=== PATIENT | male | born 1945 | race Caucasian/White ===

== ENCOUNTER 2016-10-22 12:12 | Emergency (ER) | payer OTHER, MEDICARE ==
[~2016-10-22] VITALS: Ht 182.9 cm; Wt 83.1 kg
[~2016-10-22 12:12] MED LIST: IBUP1TAB6 PO; LEVA750T7 PO; MIRA1TAB3 PO; PERCOCET PO
[2016-10-22 12:51] LABS: EOS # 0.3 K/mm3 (0.0-0.50); EOS % 6.2 % (0.0-3.0); LARGE UNSTAINED CELL # 0.1 K/mm3 (0.0-0.4); LARGE UNSTAINED CELL % 1.5 % (0.0-4.0); LYMPH # 1.1 K/mm3 (1.5-4.5); LYMPH % 24.6 % (24.0-44.0); MEAN CORPUSCULAR HGB CONC 32.1 g/dl (32.0-36.5); MEAN CORPUSCULAR VOLUME 96.6 fl (80.0-96.0); MONO # 0.2 K/mm3 (0.0-0.8); MONO % 4.8 % (0.0-5.0); NEUTROPHILS # 2.7 K/mm3 (1.8-7.7); PLATELET COUNT, AUTOMATED 117 k/mm3 (150-450); RED CELL DISTRIBUTION WIDTH 14.6 % (11.5-14.5); WHITE BLOOD COUNT 4.4 K/mm3 (4.0-10.0)
[2016-10-22 12:58] LABS: INR 0.99
[2016-10-22 13:27] LABS: ANION GAP 3 MEQ/L (8-16); BLOOD UREA NITROGEN 25 MG/DL (7-18); CALCIUM LEVEL 8.7 MG/DL (8.8-10.2); CARBON DIOXIDE LEVEL 30 MEQ/L (21-32); CHLORIDE LEVEL 110 MEQ/L (98-107); GLOMERULAR FILTRATION RATE > 60.0 (>49); GLUCOSE, FASTING 135 MG/DL (80-110); POTASSIUM SERUM 4.5 MEQ/L (3.5-5.1); SODIUM LEVEL 143 MEQ/L (136-145)
--- NOTE | 2016-10-22 13:30 | REP ---
Clinical: Chest . Comparison: Taking 01/12/2016 . Technique: PA and lateral. Findings: The mediastinum and cardiac silhouette are normal. The lung dobbs are clear and without acute consolidation, effusion, or pneumothorax. The skeletal structures are intact and normal. Impression: 1. No acute cardiopulmonary process. Signed by Dinesh Ji MD 10/22/2016 01:22 P
[2016-10-22] MEDS ORDERED: IPRATROPIUM 0.5MG/ALBUTEROL 2.5MG INH SOL UD 3ML (DUONEB)(J7620) NEB ONE ×2 (13:45→15:00)
[2016-10-22] MEDS ORDERED: methylPREDNISolone INJ 125 MG/2 ML VIAL (J2930) IV ONE (13:45)
[2016-10-22] MEDS ORDERED: ALBU17IN2 INH (15:29)
[2016-10-22] MEDS ORDERED: ALBUTEROL 90 MCG/ACT 8GM HFA INHALER INH ONE (15:30)
[2016-10-22 15:40] VITALS: BP 159/70
--- NOTE | 2016-10-23 07:28 | ECGEPIP ---
Stationary ECG Study [facility] - ED Test Date: 2016-10-22 Pat Name: RAMIRO CHAPPELL Department: Room: - Gender: M Stripe Marker: huseyin : 1945 Requested By: SARAHI Martínez Order Number: [id number] Reading MD: Cecile Ruvalcaba Measurements Intervals [place] Rate: 61 P: 54 IA: 161 QRS: 56 QRSD: 89 T: 89 QT: 372 QTc: 377 Interpretive Statements SINUS RHYTHM WITH MARKED SINUS ARRHYTHMIA NONSPECIFIC T-WAVE ABNORMALITY DELAYED R PROGRESSION Electronically Signed On 10-23-2016 7:28:24 EDT by Cecile Ruvalcaba
== END 2016-10-22 15:41 | disposition home or self-care (01) ==
LOC: M ED 12:12
DX: J44.9 Chronic obstructive pulmonary disease, unspecified (principal); R07.9 Chest pain, unspecified; R05 Cough; G25.81 Restless legs syndrome; F17.200 Nicotine dependence, unspecified, uncomplicated; R06.02 Shortness of breath; Z79.899 Other long term (current) drug therapy
CPT/HCPCS: 71020; 80048; 82550; 82553; 83880; 84484; 85025; 85610; 85730; 93005; 93041; 94640; 94760; 96374; 99285; J2930

== ENCOUNTER 2017-06-18 18:37 | Emergency (ER) | payer OTHER, MEDICARE ==
[2017-06-18] MEDS: ACETAMINOPH W/CODEINE #3 TAB UD PO (19:57)
== END 2017-06-18 20:24 | disposition home or self-care (01) ==
LOC: M ED 18:37
DX: S60.415A Abrasion of left ring finger, initial encounter (principal); S60.042A Contusion of left ring finger without damage to nail, initial encounter; X58.XXXA Exposure to other specified factors, initial encounter; Y92.018 Other place in single-family (private) house as the place of occurrence of the external cause; F33.9 Major depressive disorder, recurrent, unspecified; M54.9 Dorsalgia, unspecified; F17.210 Nicotine dependence, cigarettes, uncomplicated
CPT/HCPCS: 73130

== ENCOUNTER 2017-08-19 08:40 | Emergency (ER) | payer OTHER ==
[2017-08-19] MEDS: methylPREDNISolone INJ 125 MG/2 ML VIAL (J2930) IV ×2 (10:10)
[2017-08-19] MEDS: NS 1,000 ML IV ×2 (10:10)
[2017-08-19 10:13] LABS: BASO % 0.6 % (0.0-1.0); EOS # 0.3 10^3/uL (0.0-0.50); EOS % 5.7 % (0.0-3.0); HEMATOCRIT 43.3 % (42.0-52.0); HEMOGLOBIN 13.2 g/dl (13.5-17.5); IMMATURE GRANULOCYTE % 0.2 % (0-3.0); LYMPH # 1.5 10^3/uL (1.5-4.5); LYMPH % 29.7 % (24.0-44.0); MEAN CORPUSCULAR HEMOGLOBIN 30.3 pg (27.0-33.0); MEAN CORPUSCULAR HGB CONC 30.5 g/dl (32.0-36.5); MEAN CORPUSCULAR VOLUME 99.3 fl (80.0-96.0); MONO # 0.4 10^3/uL (0.0-0.8); MONO % 7.5 % (0.0-5.0); NEUTROPHILS # 2.8 10^3/uL (1.8-7.7); NEUTROPHILS % 56.3 % (36.0-66.0); PLATELET COUNT, AUTOMATED 162 10^3/uL (150-450); RED BLOOD COUNT 4.36 10^6/uL (4.30-6.10); RED CELL DISTRIBUTION WIDTH 13.6 % (11.5-14.5)
[2017-08-19] MEDS: ALBUTEROL SULFATE 2.5 MG/0.5 ML INH NEB SOLN NEB ×6 (10:13→11:22)
[2017-08-19 10:24] LABS: INR 0.92; PROTHROMBIN TIME 12.5 SECONDS (12.4-14.5)
[2017-08-19 10:27] LABS: D-DIMER QUANT 382.5 ng/ml (<500)
[2017-08-19 10:39] LABS: ALBUMIN 4.2 GM/DL (3.2-5.2); ALBUMIN/GLOBULIN RATIO 1.02 (1.00-1.93); ALKALINE PHOSPHATASE 95 U/L (45-117); ALT/SGPT 23 U/L (12-78); ANION GAP 3 MEQ/L (8-16); AST/SGOT 15 U/L (7-37); BILIRUBIN,DIRECT < 0.1 MG/DL (0.0-0.2); BILIRUBIN,TOTAL 0.3 MG/DL (0.2-1.0); BLOOD UREA NITROGEN 27 MG/DL (7-18); CALCIUM LEVEL 8.7 MG/DL (8.8-10.2); CARBON DIOXIDE LEVEL 26 MEQ/L (21-32); CHLORIDE LEVEL 111 MEQ/L (98-107); CPK CREATINE PHOSPHOKINASE 139 U/L (39-308); CREATININE FOR GFR 1.12 MG/DL (0.70-1.30); GLOMERULAR FILTRATION RATE > 60.0 (>42); GLUCOSE, FASTING 104 MG/DL (70-100); POTASSIUM SERUM 4.5 MEQ/L (3.5-5.1); SODIUM LEVEL 140 MEQ/L (136-145); TOTAL PROTEIN 8.3 GM/DL (6.4-8.2); TROPONIN I < 0.02 NG/ML (< 0.10)
[2017-08-19 10:40] LABS: CK-MB VALUE MASS 2.4 NG/ML (<3.6); MB/CK RELATIVE INDEX 1.72 (< OR =4); NT-PRO BNP 186 PG/ML (<125)
[2017-08-19 10:45] LABS: INFLUENZA A AMPLIFICATION NEGATIVE (NEGATIVE); INFLUENZA B AMPLIFICATION NEGATIVE (NEGATIVE)
== END 2017-08-19 12:09 | disposition home or self-care (01) ==
LOC: M ED 08:40
DX: J98.01 Acute bronchospasm (principal); G25.81 Restless legs syndrome; F33.9 Major depressive disorder, recurrent, unspecified; F43.10 Post-traumatic stress disorder, unspecified; F17.210 Nicotine dependence, cigarettes, uncomplicated; Z79.899 Other long term (current) drug therapy; Z87.09 Personal history of other diseases of the respiratory system; Z98.890 Other specified postprocedural states
CPT/HCPCS: J2930

== ENCOUNTER 2018-04-03 16:54 | Inpatient (IN) | payer OTHER, MEDICARE ==
[2018-04-03 17:23] LABS: ABG BASE EXCESS -10.3 (-2.0-2.0); ABG HCO3 19.5 MEQ/L (22.0-26.0); ABG O2 SATURATION 87.3 % (95.0-99.0); ABG STANDARD HCO3 16.1 MEQ/L (22.0-26.0); ABG TOTAL CO2 21.3 MEQ/L (23.0-31.0); HEMATOCRIT 38.5 % (42.0-52.0); HEMOGLOBIN 11.6 g/dl (13.5-17.5); MEAN CORPUSCULAR HEMOGLOBIN 32.7 pg (27.0-33.0); MEAN CORPUSCULAR HGB CONC 30.1 g/dl (32.0-36.5); MEAN CORPUSCULAR VOLUME 108.5 fl (80.0-96.0); PLATELET COUNT, AUTOMATED 137 10^3/uL (150-450); RED BLOOD COUNT 3.55 10^6/uL (4.30-6.10); RED CELL DISTRIBUTION WIDTH 17.1 % (11.5-14.5)
[2018-04-03 17:27] LABS: INR 1.15; PARTIAL THROMBOPLASTIN TIME 29.6 SECONDS (25.4-37.6); PROTHROMBIN TIME 14.9 SECONDS (12.1-14.4)
[2018-04-03 17:28] LABS: ABG PARTIAL PRESSURE CO2 61.5 mmHg (35.0-45.0); ABG pH (ARTERIAL) 7.118 UNITS (7.350-7.450)
[2018-04-03 17:32] LABS: LACTIC ACID SEPSIS PROTOCOL 6.7 MMOL/L (0.4-2.0)
[2018-04-03 17:32] LABS: ADD MANUAL DIFFER YES; DIFF SLIDE NUMBER 318; POSITIVE DIFF POS FLAG; POSITIVE MORPH POS FLAG; WHITE BLOOD COUNT 11.3 10^3/uL (4.0-10.0)
[2018-04-03 17:38] LABS: ALBUMIN 3.7 GM/DL (3.2-5.2); ALBUMIN/GLOBULIN RATIO 1.42 (1.00-1.93); ALKALINE PHOSPHATASE 81 U/L (45-117); ALT/SGPT 85 U/L (12-78); AMYLASE 52 U/L (25-115); ANION GAP 10 MEQ/L (8-16); AST/SGOT 68 U/L (7-37); BILIRUBIN,DIRECT 0.2 MG/DL (0.0-0.2); BILIRUBIN,TOTAL 0.7 MG/DL (0.2-1.0); BLOOD UREA NITROGEN 26 MG/DL (7-18); CALCIUM LEVEL 7.7 MG/DL (8.8-10.2); CARBON DIOXIDE LEVEL 24 MEQ/L (21-32); CHLORIDE LEVEL 107 MEQ/L (98-107); CPK CREATINE PHOSPHOKINASE 106 U/L (39-308); CREATININE FOR GFR 1.45 MG/DL (0.70-1.30); GLOMERULAR FILTRATION RATE 51.2 (>42); GLUCOSE, FASTING 274 MG/DL (70-100); LIPASE 128 U/L (73-393); MAGNESIUM LEVEL 2.3 MG/DL (1.8-2.4); PHOSPHORUS LEVEL 4.8 MG/DL (2.5-4.9); POTASSIUM SERUM 4.3 MEQ/L (3.5-5.1); SODIUM LEVEL 141 MEQ/L (136-145); TOTAL PROTEIN 6.3 GM/DL (6.4-8.2); TROPONIN I < 0.02 NG/ML (< 0.10)
[2018-04-03] MEDS: NS 1,000 ML IV ×2 (17:39→17:50)
[2018-04-03 17:42] LABS: AMORPHOUS SEDIMENT RFX MODERATE (NEGATIVE); KETONE, URINE AUTO RFX NEGATIVE (NEGATIVE); LEUKOCYTE ESTERASE UR AUTO RFX NEGATIVE (NEGATIVE); MUCUS, URINE RFX SMALL (NEGATIVE); NITRITE, URINE AUTO RFX NEGATIVE (NEGATIVE); RBC, URINE AUTO RFX 22 /HPF (0-3); SPECIFIC GRAVITY UR AUTO RFX 1.016 (1.002-1.035); SQUAM EPITHELIAL CELL UR AURFX 1 /HPF (0-6); WBC, URINE AUTO RFX 1 /HPF (0-3)
[2018-04-03] MEDS: DILUENT IV (17:45)
[2018-04-03] MEDS: NS IV (17:45)
[2018-04-03 18:02] LABS: ATYPICAL LYMPH 29 % (0-5); BASOPHILS 1 % (0-4); EOSINOPHILS 3 % (0-5); LYMPHOCYTES 13 % (16-52); MONOCYTES 4 % (0-8); NEUTROPHILS 50 % (35-75)
[2018-04-03 18:03] LABS: PLATELET ESTIMATE DECREASED (NORMAL); SMUDGE CELLS 1+
[2018-04-03 18:04] LABS: OVALOCYTES 2+
[2018-04-03] MEDS: NOREPINEPHRINE BITARTRATE 8 MG in D5W 492 ML IV ×2 (18:05→18:40)
[2018-04-03 18:06] LABS: D-DIMER QUANT > 4000.00 ng/ml (<500)
[2018-04-03] MEDS ORDERED: ISOVUE-370 76% 100ML VIAL (Q9967) As Ordered (18:06)
[2018-04-03 18:09] LABS: ABG BASE EXCESS -6.7 (-2.0-2.0); ABG HCO3 21.7 MEQ/L (22.0-26.0); ABG O2 SATURATION 89.6 % (95.0-99.0); ABG PARTIAL PRESSURE CO2 58.3 mmHg (35.0-45.0); ABG PARTIAL PRESSURE O2 121.8 mmHg (75.0-100.0); ABG STANDARD HCO3 18.9 MEQ/L (22.0-26.0); ABG TOTAL CO2 23.5 MEQ/L (23.0-31.0)
[2018-04-03] MEDS: PIPERACILLIN/TAZOBACTAM SOD 4.5 GM in D5W MINI-BAG PLUS 50 ML IV (18:09)
[2018-04-03 18:13] LABS: ABG pH (ARTERIAL) 7.188 UNITS (7.350-7.450)
[2018-04-03] MEDS ORDERED: DOPamine 400 MG/500 ML BAG IN D5W (800MCG/ML) (J1265) As Ordered (18:14)
[2018-04-03] MEDS: EPINEPHrine 1MG/10ML SYRINGE 1.5IN IV (18:15)
[2018-04-03] MEDS: DOPamine HCL 400 MG in APPROPRIATE DILUENT 1 EA IV ×2 (18:16→18:42)
[2018-04-03 18:22] LABS: AMPHETAMINES LEVEL URINE NEGATIVE (NEGATIVE); BARBITURATES URINE NEGATIVE (NEGATIVE); BENZODIAZEPINES URINE NEGATIVE (NEGATIVE); CANNABINOIDS URINE POSITIVE (NEGATIVE); COCAINE METABOLITE URINE POSITIVE (NEGATIVE); METHADONE URINE NEGATIVE (NEGATIVE); OPIATES URINE NEGATIVE (NEGATIVE); PHENCYCLIDINE URINE NEGATIVE (NEGATIVE)
[2018-04-03] MEDS ORDERED: VASOPRESSIN INJ 20 UNITS/ML VIAL As Ordered (18:35)
[2018-04-03] MEDS: CALCIUM CHLORIDE 10% 1 GM in D5W 100 ML IV (18:40)
[2018-04-03] MEDS: VASOPRESSIN INJ 20 UNITS in NS 500 ML IV ×2 (18:48→19:35)
[2018-04-03] MEDS ORDERED: LORazepam 2 MG/ML VIAL (J2060) IV (19:45)
[2018-04-03] MEDS ORDERED: MORPHINE 4 MG/ML 1ML VIAL/SYRINGE (J2270) IV (19:45)
[2018-04-03] MEDS: COMBIVENT RESPIMAT 100-20MCG INHALER 4GM INH (20:00)
[2018-04-03] MEDS: IPRATROPIUM 0.5MG/ALBUTEROL 2.5MG INH SOL UD 3ML (DUONEB)(J7620) NEB (20:00)
[2018-04-03] MEDS ORDERED: ATROPINE SULF 1MG/10ML SYRINGE (J0461) (20:41)
[2018-04-03] MEDS ORDERED: CALCIUM CHLORIDE 10% 1 GM/10 ML SYR (20:41)
[2018-04-03] MEDS ORDERED: EPINEPHrine 1MG/10ML SYRINGE 1.5IN (20:41)
[2018-04-03 22:00] LABS: ABG O2 SATURATION 84.7 % (95.0-99.0); ABG STANDARD HCO3 17.8 MEQ/L (22.0-26.0)
[2018-04-03] MEDS ORDERED: GLUCAGON FOR INJ 1 MG VIAL (J1610) SC (22:00)
[2018-04-03] MEDS ORDERED: GLUCOSE 4 GM CHEW TABLET PO (22:00)
[2018-04-03] MEDS ORDERED: DEXTROSE 50% 50 ML SYRINGE IV (22:00)
[2018-04-03] MEDS: CHLORHEXIDINE GLUCONATE 0.12 % 15ML UDC (PERIDEX ORAL RINSE) MT (22:00)
[2018-04-03 22:01] LABS: ABG BASE EXCESS -8.1 (-2.0-2.0); ABG PARTIAL PRESSURE CO2 58.8 mmHg (35.0-45.0); ABG PARTIAL PRESSURE O2 79.8 mmHg (75.0-100.0); ABG TOTAL CO2 22.8 MEQ/L (23.0-31.0)
[2018-04-03 22:03] LABS: ABG pH (ARTERIAL) 7.171 UNITS (7.350-7.450)
[2018-04-03 23:54] LABS: BEDSIDE GLUCOSE 242 MG/DL (83-110)
[2018-04-04] MEDS: COMBIVENT RESPIMAT 100-20MCG INHALER 4GM INH ×6 (04:00→20:00)
[2018-04-04 04:12] LABS: HEMATOCRIT 38.7 % (42.0-52.0); HEMOGLOBIN 11.7 g/dl (13.5-17.5); MEAN CORPUSCULAR HEMOGLOBIN 31.5 pg (27.0-33.0); MEAN CORPUSCULAR HGB CONC 30.2 g/dl (32.0-36.5); PLATELET COUNT, AUTOMATED 162 10^3/uL (150-450); RED BLOOD COUNT 3.72 10^6/uL (4.30-6.10); RED CELL DISTRIBUTION WIDTH 16.8 % (11.5-14.5); WHITE BLOOD COUNT 16.3 10^3/uL (4.0-10.0)
[2018-04-04 04:30] LABS: ABG BASE EXCESS -2.7 (-2.0-2.0); ABG PARTIAL PRESSURE O2 115.4 mmHg (75.0-100.0); ABG STANDARD HCO3 22.1 MEQ/L (22.0-26.0); ABG TOTAL CO2 26.7 MEQ/L (23.0-31.0); ABG pH (ARTERIAL) 7.267 UNITS (7.350-7.450)
[2018-04-04 04:50] LABS: ALBUMIN 3.4 GM/DL (3.2-5.2); ANION GAP 5 MEQ/L (8-16); BLOOD UREA NITROGEN 30 MG/DL (7-18); CALCIUM LEVEL 7.4 MG/DL (8.8-10.2); CARBON DIOXIDE LEVEL 27 MEQ/L (21-32); CHLORIDE LEVEL 110 MEQ/L (98-107); CREATININE FOR GFR 1.33 MG/DL (0.70-1.30); GLOMERULAR FILTRATION RATE 56.6 (>42); GLUCOSE, FASTING 191 MG/DL (70-100); PHOSPHORUS LEVEL 3.7 MG/DL (2.5-4.9); POTASSIUM SERUM 5.4 MEQ/L (3.5-5.1); SODIUM LEVEL 142 MEQ/L (136-145)
[2018-04-04] MEDS: IPRATROPIUM 0.5MG/ALBUTEROL 2.5MG INH SOL UD 3ML (DUONEB)(J7620) NEB ×4 (07:18→19:53)
[2018-04-04] MEDS ORDERED: SLF 3 ML SYR IV (08:00)
[2018-04-04] MEDS ORDERED: SODIUM CHLORIDE 0.9% INJ 10 ML SYR IV (08:00)
[2018-04-04] MEDS: DOPamine HCL 400 MG in APPROPRIATE DILUENT 1 EA IV ×2 (08:37→21:44)
[2018-04-04] MEDS: CHLORHEXIDINE GLUCONATE 0.12 % 15ML UDC (PERIDEX ORAL RINSE) MT ×2 (08:37→21:44)
[2018-04-04] MEDS: ENOXAPARIN 40 MG/0.4 ML SYRINGE (J1650) SC (08:38)
[2018-04-04] MEDS: PANTOPRAZOLE 40MG INJ (PROTONIX) (C9113) IV (08:38)
[2018-04-04] MEDS: FOLIC ACID 1 MG TAB PO (09:19)
[2018-04-04] MEDS: MULTIVITAMINS/MINERALS THERAP 1 TAB PO (09:20)
[2018-04-04] MEDS: FUROSEMIDE 20 MG/2 ML VIAL (J1940) IV (09:20)
[2018-04-04] MEDS: THIAMINE 100 MG TAB PO (09:20)
[2018-04-04 10:20] LABS: FREE T4 0.86 NG/DL (0.76-1.46)
[2018-04-04] MEDS: HumaLOG INSULIN (NovoLOG) PER UNIT SC ×2 (12:00→18:21)
[2018-04-04 12:57] LABS: ANION GAP 6 MEQ/L (8-16); BLOOD UREA NITROGEN 34 MG/DL (7-18); CALCIUM LEVEL 7.2 MG/DL (8.8-10.2); CARBON DIOXIDE LEVEL 26 MEQ/L (21-32); CHLORIDE LEVEL 109 MEQ/L (98-107); CREATININE FOR GFR 1.88 MG/DL (0.70-1.30); GLUCOSE, FASTING 174 MG/DL (70-100); POTASSIUM SERUM 5.5 MEQ/L (3.5-5.1); SODIUM LEVEL 141 MEQ/L (136-145)
[2018-04-04] MEDS: FUROSEMIDE 40 MG/4 ML VIAL (J1940) IV (14:18)
[2018-04-04] MEDS: SODIUM CHLORIDE 0.9% INJ 10 ML SYR IV ×2 (14:19→21:44)
[2018-04-04] MEDS: SLF 3 ML SYR IV ×2 (14:19→21:44)
[2018-04-04 18:19] LABS: BEDSIDE GLUCOSE 188 MG/DL (83-110)
[2018-04-04] MEDS: NOREPINEPHRINE BITARTRATE 8 MG in D5W 492 ML IV (21:46)
[2018-04-05 00:45] LABS: BEDSIDE GLUCOSE 191 MG/DL (83-110)
[2018-04-05] MEDS: PIPERACILLIN/TAZOBACTAM SOD 3.375 GM in D5W MINI-BAG PLUS 50 ML IV ×3 (01:12→19:05)
[2018-04-05] MEDS: HumaLOG INSULIN (NovoLOG) PER UNIT SC ×4 (01:13→19:05)
[2018-04-05] MEDS: COMBIVENT RESPIMAT 100-20MCG INHALER 4GM INH ×4 (04:00→11:08)
[2018-04-05 05:22] LABS: HEMATOCRIT 33.8 % (42.0-52.0); HEMOGLOBIN 9.9 g/dl (13.5-17.5); MEAN CORPUSCULAR HEMOGLOBIN 31.6 pg (27.0-33.0); MEAN CORPUSCULAR HGB CONC 29.3 g/dl (32.0-36.5); PLATELET COUNT, AUTOMATED 100 10^3/uL (150-450); RED BLOOD COUNT 3.13 10^6/uL (4.30-6.10); WHITE BLOOD COUNT 15.8 10^3/uL (4.0-10.0)
[2018-04-05 05:50] LABS: ALBUMIN 2.9 GM/DL (3.2-5.2); ALBUMIN/GLOBULIN RATIO 1.16 (1.00-1.93); ALKALINE PHOSPHATASE 62 U/L (45-117); ALT/SGPT 86 U/L (12-78); ANION GAP 7 MEQ/L (8-16); AST/SGOT 54 U/L (7-37); BILIRUBIN,TOTAL 0.7 MG/DL (0.2-1.0); BLOOD UREA NITROGEN 50 MG/DL (7-18); CALCIUM LEVEL 7.3 MG/DL (8.8-10.2); CARBON DIOXIDE LEVEL 24 MEQ/L (21-32); CHLORIDE LEVEL 107 MEQ/L (98-107); CHOLESTEROL LEVEL 107 MG/DL (< 200); CPK CREATINE PHOSPHOKINASE 993 U/L (39-308); CREATININE FOR GFR 2.29 MG/DL (0.70-1.30); GLOMERULAR FILTRATION RATE 30.2 (>42); GLUCOSE, FASTING 210 MG/DL (70-100); LDH LACTATE DEHYDROGENASE 330 U/L (87-241); PHOSPHORUS LEVEL 4.6 MG/DL (2.5-4.9); SODIUM LEVEL 138 MEQ/L (136-145); TOTAL PROTEIN 5.4 GM/DL (6.4-8.2); TRIGLYCERIDES LEVEL 102 MG/DL (<150)
[2018-04-05] MEDS: SODIUM CHLORIDE 0.9% INJ 10 ML SYR IV ×3 (06:00→21:33)
[2018-04-05] MEDS: SLF 3 ML SYR IV ×3 (06:00→21:33)
[2018-04-05 06:23] LABS: ABG BASE EXCESS -2.3 (-2.0-2.0); ABG O2 SATURATION 92.6 % (95.0-99.0); ABG PARTIAL PRESSURE CO2 55.8 mmHg (35.0-45.0); ABG PARTIAL PRESSURE O2 121.3 mmHg (75.0-100.0); ABG STANDARD HCO3 22.4 MEQ/L (22.0-26.0); ABG TOTAL CO2 26.8 MEQ/L (23.0-31.0)
[2018-04-05] MEDS: IPRATROPIUM 0.5MG/ALBUTEROL 2.5MG INH SOL UD 3ML (DUONEB)(J7620) NEB ×4 (07:39→20:04)
[2018-04-05] MEDS: PANTOPRAZOLE 40MG INJ (PROTONIX) (C9113) IV (09:48)
[2018-04-05] MEDS: CHLORHEXIDINE GLUCONATE 0.12 % 15ML UDC (PERIDEX ORAL RINSE) MT ×2 (09:48→21:33)
[2018-04-05] MEDS: THIAMINE 100 MG TAB PO (09:49)
[2018-04-05] MEDS: ENOXAPARIN 40 MG/0.4 ML SYRINGE (J1650) SC (09:49)
[2018-04-05] MEDS: FOLIC ACID 1 MG TAB PO (09:49)
[2018-04-05] MEDS: MULTIVITAMINS/MINERALS THERAP 1 TAB PO (09:49)
[2018-04-05] MEDS: DOPamine HCL 400 MG in APPROPRIATE DILUENT 1 EA IV ×2 (10:47→21:34)
[2018-04-05 12:07] LABS: BEDSIDE GLUCOSE 163 MG/DL (83-110)
[2018-04-05 12:45] LABS: ANION GAP 6 MEQ/L (8-16); BLOOD UREA NITROGEN 53 MG/DL (7-18); CALCIUM LEVEL 7.5 MG/DL (8.8-10.2); CARBON DIOXIDE LEVEL 26 MEQ/L (21-32); CHLORIDE LEVEL 107 MEQ/L (98-107); GLOMERULAR FILTRATION RATE 31.7 (>42); GLUCOSE, FASTING 164 MG/DL (70-100); POTASSIUM SERUM 4.9 MEQ/L (3.5-5.1); SODIUM LEVEL 139 MEQ/L (136-145)
[2018-04-05 19:00] LABS: BEDSIDE GLUCOSE 181 MG/DL (83-110)
[2018-04-05 23:51] LABS: BEDSIDE GLUCOSE 199 MG/DL (83-110)
[2018-04-06] MEDS: HumaLOG INSULIN (NovoLOG) PER UNIT SC ×2 (01:02→06:30)
[2018-04-06] MEDS: PIPERACILLIN/TAZOBACTAM SOD 3.375 GM in D5W MINI-BAG PLUS 50 ML IV (01:02)
[2018-04-06 04:50] LABS: HEMATOCRIT 28.7 % (42.0-52.0); HEMOGLOBIN 8.5 g/dl (13.5-17.5); MEAN CORPUSCULAR HEMOGLOBIN 32.2 pg (27.0-33.0); MEAN CORPUSCULAR HGB CONC 29.6 g/dl (32.0-36.5); MEAN CORPUSCULAR VOLUME 108.7 fl (80.0-96.0); RED BLOOD COUNT 2.64 10^6/uL (4.30-6.10); WHITE BLOOD COUNT 11.2 10^3/uL (4.0-10.0)
[2018-04-06 04:54] LABS: PLATELET COUNT, AUTOMATED 95 10^3/uL (150-450)
[2018-04-06 04:55] LABS: IMMATURE PLATELET FRACTION % 5.4 % (0.0-10.9)
[2018-04-06] MEDS: SLF 3 ML SYR IV ×3 (06:00→20:22)
[2018-04-06] MEDS: SODIUM CHLORIDE 0.9% INJ 10 ML SYR IV ×3 (06:00→20:23)
[2018-04-06 06:26] LABS: ABG pH (ARTERIAL) 7.262 UNITS (7.350-7.450)
[2018-04-06 06:27] LABS: ABG HCO3 24.2 MEQ/L (22.0-26.0); ABG O2 SATURATION 91.5 % (95.0-99.0); ABG PARTIAL PRESSURE O2 98.2 mmHg (75.0-100.0); ABG STANDARD HCO3 21.8 MEQ/L (22.0-26.0); ABG TOTAL CO2 25.9 MEQ/L (23.0-31.0)
[2018-04-06] MEDS: IPRATROPIUM 0.5MG/ALBUTEROL 2.5MG INH SOL UD 3ML (DUONEB)(J7620) NEB ×4 (07:38→20:07)
[2018-04-06 07:41] LABS: ALBUMIN 2.5 GM/DL (3.2-5.2); ALBUMIN/GLOBULIN RATIO 0.96 (1.00-1.93); ALKALINE PHOSPHATASE 50 U/L (45-117); ALT/SGPT 69 U/L (12-78); ANION GAP 6 MEQ/L (8-16); AST/SGOT 98 U/L (7-37); BILIRUBIN,TOTAL 0.5 MG/DL (0.2-1.0); BLOOD UREA NITROGEN 64 MG/DL (7-18); CALCIUM LEVEL 7.2 MG/DL (8.8-10.2); CARBON DIOXIDE LEVEL 26 MEQ/L (21-32); CHLORIDE LEVEL 105 MEQ/L (98-107); CHOLESTEROL LEVEL 107 MG/DL (< 200); CPK CREATINE PHOSPHOKINASE 3438 U/L (39-308); CREATININE FOR GFR 2.02 MG/DL (0.70-1.30); GLOMERULAR FILTRATION RATE 34.9 (>42); GLUCOSE, FASTING 200 MG/DL (70-100); LDH LACTATE DEHYDROGENASE 377 U/L (87-241); PHOSPHORUS LEVEL 3.4 MG/DL (2.5-4.9); POTASSIUM SERUM 5.5 MEQ/L (3.5-5.1); SODIUM LEVEL 137 MEQ/L (136-145); TOTAL PROTEIN 5.1 GM/DL (6.4-8.2); TRIGLYCERIDES LEVEL 102 MG/DL (<150)
[2018-04-06] MEDS: MULTIVITAMINS/MINERALS THERAP 1 TAB PO (08:21)
[2018-04-06] MEDS: THIAMINE 100 MG TAB PO (08:21)
[2018-04-06] MEDS: ENOXAPARIN 40 MG/0.4 ML SYRINGE (J1650) SC (08:21)
[2018-04-06] MEDS: PANTOPRAZOLE 40MG INJ (PROTONIX) (C9113) IV (08:21)
[2018-04-06] MEDS: FOLIC ACID 1 MG TAB PO (08:21)
[2018-04-06] MEDS: CHLORHEXIDINE GLUCONATE 0.12 % 15ML UDC (PERIDEX ORAL RINSE) MT ×2 (08:22→20:22)
[2018-04-06 10:49] LABS: BEDSIDE GLUCOSE 204 MG/DL (83-110)
[2018-04-06] MEDS: DOPamine HCL 400 MG in APPROPRIATE DILUENT 1 EA IV (16:55)
[2018-04-07] MEDS: SODIUM CHLORIDE 0.9% INJ 10 ML SYR IV (06:00)
[2018-04-07] MEDS: SLF 3 ML SYR IV (06:00)
[2018-04-07] MEDS: IPRATROPIUM 0.5MG/ALBUTEROL 2.5MG INH SOL UD 3ML (DUONEB)(J7620) NEB ×2 (07:21→12:00)
[2018-04-07] MEDS: CHLORHEXIDINE GLUCONATE 0.12 % 15ML UDC (PERIDEX ORAL RINSE) MT (09:27)
[2018-04-07] MEDS: PANTOPRAZOLE 40MG INJ (PROTONIX) (C9113) IV (09:27)
== END 2018-04-07 11:13 | disposition expired | DRG 291 ==
LOC: M ED 16:54 → M ED INP 19:38 → M ICU 20:56
PROC: 02HV33Z Insertion of Infusion Device into Superior Vena Cava, Percutaneous Approach (ICD-10-PCS; principal; 2018-04-03)
PROC: 5A1945Z Respiratory Ventilation, 24-96 Consecutive Hours (ICD-10-PCS; 2018-04-03)
DX: R57.0 Cardiogenic shock (principal); J96.02 Acute respiratory failure with hypercapnia; R40.20 Unspecified coma; E87.2 Acidosis; G93.1 Anoxic brain damage, not elsewhere classified; N17.9 Acute kidney failure, unspecified; E87.5 Hyperkalemia; R73.9 Hyperglycemia, unspecified; F17.210 Nicotine dependence, cigarettes, uncomplicated; R00.1 Bradycardia, unspecified; Z51.5 Encounter for palliative care; Z66 Do not resuscitate